=== PATIENT | female | born 1975 | race Two or more races ===

== ENCOUNTER 2024-08-07 08:17 | Outpatient (CLI) | payer OTHER ==
[2024-08-11] MEDS ORDERED: SYNTHROID50 MCG PO (09:01)
[2024-08-11] MEDS ORDERED: CRESTOR40 MG (09:02)
[2024-08-11] MEDS ORDERED: CALCIUM500 M2 (09:02)
[2024-08-11] MEDS ORDERED: VITAMIN D3125 MC2 PO (09:02)
[2024-08-11] MEDS ORDERED: TREXALL7.5 MG PO (09:03)
== END 2024-08-07 08:20 | disposition home or self-care (01) ==
LOC: SONOGRAMA 08:17
PROVIDERS: ATTEND Pathology Anatomic Pathology & Clinical Pathology
DX: R59.0 Localized enlarged lymph nodes (principal); C73 Malignant neoplasm of thyroid gland

== ENCOUNTER 2024-08-17 07:52 | Inpatient (IN) | payer OTHER ==
[2024-08-11 09:04] VITALS: BP 126/80
[2024-08-11 09:44] LABS: URINE APPEARANCE Clear; URINE BILIRRUBIN Negative (NEGATIVE); URINE BLOOD Negative; URINE COLOR Yellow; URINE GLUCOSE Negative (NEGATIVE); URINE KETONE Negative (NEGATIVE); URINE LEUKOCYTE Small; URINE NITRATE Negative; URINE PROTEIN Negative (NEGATIVE); URINE UROBILINOGEN 0.2 E.U./dl
[2024-08-11 09:49] LABS: URINE EPITHELIAL CELLS 9.6 uL (0.0-38.8); URINE RBC 18.1 uL (0.0-20.8); URINE WBC 5.5 uL (0.0-23.2)
[2024-08-11 10:06] LABS: HEMATOCRIT 39.3 % (36.0-45.00); HEMOGLOBIN 13.5 g/dL (12.0-15.00); MEAN CELL VOLUME 95.5 fL (80.00-100.00); MEAN CORPUSCULAR HEMOGLOBIN 32.8 pg (27.00-32.0); MEAN CORPUSCULAR HGB CONC 34.4 g/dl (32.0-36.0); PLATELET COUNT 267 K/uL (150-450); RED BLOOD COUNT 4.12 M/uL (4.00-6.00); RED CELL DISTRIBUTION WIDTH 14.3 % (11.5-14.5)
[2024-08-11 10:16] LABS: URINE CAST 0.14 uL (0.0-1.40)
[2024-08-11 10:20] LABS: INR 0.99; PROTHROMBIN TIME 10.8 SECONDS (9.0-11.5)
[2024-08-11 10:53] LABS: ALBUMIN 4.3 gm/dL (3.4-5.0); BILIRUBIN TOTAL 0.5 mg/dL (0.3-1.2); CALCIUM 9.4 mg/dL (8.5-10.1); CREATININE SERUM 0.74 mg/dL (0.55-1.02); GFR 83.07; GLOBULINA 3.6 G/DL (2.4-3.5); POTASSIUM 3.9 mEq/L (3.5-5.1); TOTAL PROTEIN 7.9 gm/dL (6.4-8.2)
[~2024-08-17] VITALS: Ht 160 cm; Wt 72.6 kg
[~2024-08-17 07:52] MED LIST: CALCIUM500 M2; CRESTOR40 MG; SYNTHROID50 MCG PO; TREXALL7.5 MG PO; VITAMIN D3125 MC2 PO
[2024-08-17] MEDS ORDERED: DEXAMETHASONE SODIUM PHOSPHATE 4 MG/ML VIAL ONE (16:01)
[2024-08-17] MEDS ORDERED: ENALAPRILAT DIHYDRATE 1.25 MG/ML VIAL IV PRN (18:00)
[2024-08-17] MEDS ORDERED: ONDANSETRON HCL 2 MG/ML VIAL IV PRN (18:00)
[2024-08-17] MEDS ORDERED: Calcium Carbonate 1 TAB TABLET PO SCH (21:00)
[2024-08-17] MEDS ORDERED: PANTOPRAZOLE SODIUM 40 MG/VIAL VIAL IV PUSH SCH (21:00)
[2024-08-17] MEDS ORDERED: PANTOPRAZOLE SODIUM 40 MG/VIAL VIAL ONE (21:02)
[2024-08-17 21:56] VITALS: BP 148/71; O2SAT 98
[2024-08-17] MEDS ORDERED: CYCLOBENZAPRINE HCL 5 MG TABLET PO ONE (23:15)
[2024-08-17] MEDS ORDERED: ACETAMINOPHEN 500 MG GEL..CAP PO ONE (23:15)
[2024-08-17] MEDS ORDERED: GABAPENTIN 100 MG CAPSULE PO ONE (23:15)
[2024-08-18] VITALS: BP 150/88; O2SAT 98
[2024-08-18] MEDS ORDERED: ACETAMINOPHEN 500 MG GEL..CAP PO SCH (01:00)
[2024-08-18] MEDS ORDERED: LEVOTHYROXINE SODIUM 112 MCG TABLET PO SCH (07:00)
[2024-08-18 08:00] VITALS: BP 109/70; O2SAT 98
[2024-08-18] MEDS ORDERED: CYCLOBENZAPRINE HCL 5 MG TABLET PO SCH (17:00)
[2024-08-18] MEDS ORDERED: GABAPENTIN 100 MG CAPSULE PO SCH (17:00)
== END 2024-08-18 13:50 | disposition home or self-care (01) | DRG 626 ==
LOC: CIR.AMB 07:52 → SURH 18:08
PROVIDERS: ADMIT Surgery; ATTEND Surgery
PROC: 0CQ Mouth and Throat, Repair (ICD-10-PCS; 2024-08-17)
PROC: 0GTH0ZZ Resection of Right Thyroid Gland Lobe, Open Approach (ICD-10-PCS; principal; 2024-08-17 10:00)
DX: C73 Malignant neoplasm of thyroid gland (principal); G97.49 Accidental puncture and laceration of other nervous system organ or structure during other procedure